=== PATIENT | male | born 1995 | race Caucasian/White ===

== ENCOUNTER 2021-12-24 13:21 | Emergency (ER) | payer BC, SELFPAY ==
[2021-12-24 13:28] VITALS: BP 129/65; PULSE 94; RESP 16; TEMP 37.6; O2SAT 99
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
== END 2021-12-24 14:25 | disposition home or self-care (01) ==
PROVIDERS: Emergency Provider Registered Nurse; PCP Family Medicine
DX: L03.213 Periorbital cellulitis (principal); B02.30 Zoster ocular disease, unspecified
CPT/HCPCS: 99203; G0463

== ENCOUNTER 2022-08-29 11:12 | Emergency (ER) | payer BC, SELFPAY ==
[2022-08-29 11:16] VITALS: BP 116/86; PULSE 93; RESP 20; TEMP 36.8; O2SAT 100
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
== END 2022-08-29 11:37 | disposition home or self-care (01) ==
PROVIDERS: Emergency Provider Nurse Practitioner Family; PCP Family Medicine
DX: B34.9 Viral infection, unspecified (principal); J45.909 Unspecified asthma, uncomplicated
CPT/HCPCS: 99211; G0463